=== PATIENT | male | born 1945 | race Caucasian/White ===

== ENCOUNTER 2016-11-03 05:21 | Inpatient (IN) | payer OTHER ==
[2016-10-01 13:58] VITALS: BMI 31.0
--- NOTE | 2016-10-01 14:38 | PAT Medication Instructions ---
Service Date Oct 01, 2016. Current Home Medication List Acetaminophen (Tylenol), 650 MG PO QID PRN for Pain Ascorbic Acid (Vitamin C), PO QAM Aspirin (Aspirin Ec), 81 MG PO HS Atorvastatin (Lipitor), 80 MG PO QAM B-Complex Vitamins (Vitamin B Complex), 1 TAB PO QAM Cinnamon (Cinnamon), 1 TAB PO QAM Fish Oil ([place]-3), 1 CAP PO QAM Flaxseed (Linseed) (Flaxseed Oil [place]-3), 2 CAP PO QAM Hydrochlorothiazide (Hctz), 12.5 MG PO QAM Losartan Potassium (Cozaar), 100 MG PO HS Metformin Hcl (Glucophage), 1,000 MG PO BID Metoprolol Succ (Toprol Xl) (Toprol-Xl), 50 MG PO QAM Multivitamin (Multivitamin), 1 TAB PO QAM Naproxen (Aleve), 220 MG PO BID PRN for Pain Nitroglycerin (Nitrostat), 0.4 MG UT PRN PRN for Chest Pain Omeprazole (Omeprazole), 1 TAB PO QAM Vardenafil (Levitra), 20 MG PO DIRECTED Medication Instructions For Your Scheduled Surgery Naproxen (Aleve), 220 MG PO BID PRN for Pain (per surgeon instructions) - Hold the following medications 2 weeks prior to surgery: Fish Oil ([place]-3), 1 CAP PO QAM Flaxseed (Linseed) (Flaxseed Oil [place]-3), 2 CAP PO QAM Cinnamon (Cinnamon), 1 TAB PO QAM - Hold the following medications 48 hours prior to surgery: Metformin Hcl (Glucophage), 1,000 MG PO BID - Hold the following medications the morning of surgery: Multivitamin (Multivitamin), 1 TAB PO QAM Hydrochlorothiazide (Hctz), 12.5 MG PO QAM B-Complex Vitamins (Vitamin B Complex), 1 TAB PO QAM Ascorbic Acid (Vitamin C), PO QAM Vardenafil (Levitra), 20 MG PO DIRECTED - Take the following medications the morning of surgery with a sip of water: Omeprazole (Omeprazole), 1 TAB PO QAM Metoprolol Succ (Toprol Xl) (Toprol-Xl), 50 MG PO QAM Atorvastatin (Lipitor), 80 MG PO QAM Acetaminophen (Tylenol), 650 MG PO QID PRN for Pain Nitroglycerin (Nitrostat), 0.4 MG UT PRN PRN for Chest Pain - Hold the following medications as scheduled the night before surgery: Losartan Potassium (Cozaar), 100 MG PO HS - Take the following medications as scheduled the night before surgery: Acetaminophen (Tylenol), 650 MG PO QID PRN for Pain Aspirin (Aspirin Ec), 81 MG PO HS (okay to continue per surgeon) Nitroglycerin (Nitrostat), 0.4 MG UT PRN PRN for Chest Pain Vardenafil (Levitra), 20 MG PO DIRECTED If you have any questions please call us at [phone] (Elizabeth Espino PA-C) or [phone] or [phone]
[2016-10-01 16:02] LABS: COMPLETE YES; HEMATOCRIT 43.2 % (42-52); IG% 0.3 %; LYMPH % 39.7 %; LYMPH ABS # 2.32 K/uL (1.2-3.4); MEAN CELL VOLUME 85.5 fL (80-100); MEAN CORPUSCULAR HEMOGLOBIN 30.3 pg (25-34); MEAN CORPUSCULAR HGB CONC 35.4 g/dl (32-36); MEAN PLATELET VOLUME 9.9 fL (7.4-10.4); MONO % 7.2 %; NEUT % 51.8 %; PLATELET COUNT 157 K/uL (130-400); RED BLOOD COUNT 5.05 M/uL (4.7-6.1); WHITE BLOOD COUNT 5.85 K/uL (4.8-10.8)
[2016-10-01 16:05] LABS: URINE APPEARANCE CLEAR (CLEAR); URINE BILIRUBIN NEG (NEG); URINE COLOR DK YELLOW; URINE NITRITE NEG (NEG); URINE SPECIFIC GRAVITY 1.022 (1.000-1.030); UROBILINOGEN NEG (NEG); ZZUR CULT IF INDIC CLEAN CATCH NO
[2016-10-01 16:06] LABS: MANUAL MICROSCOPIC REQUIRED? NO; REVIEW REQ? NO
[2016-10-01 16:14] LABS: PROTHROMBIN TIME (PATIENT) 10.6 SECONDS (9.0-12.0)
[2016-10-01 16:20] LABS: BUN/CREATININE RATIO 21.2 (10-20); CALCIUM 9.8 mg/dl (8.5-10.1); CREATININE 0.82 mg/dl (0.60-1.40); POTASSIUM 4.4 mmol/L (3.5-5.1)
--- NOTE | 2016-11-02 21:17 | HISTORY & PHYSICAL EXAMINATION ---
DATE OF ADMISSION: 11/03/2016 CHIEF COMPLAINT: Chronic left knee pain. HISTORY OF PRESENT ILLNESS: This is a 71-year-old male patient of Dr. Castillo'shalonda complaining of chronic left knee pain, longstanding, now progressively getting worse. The patient has failed conservative treatment including intraarticular injections, the use of narcotic medications, anti-inflammatories and the use of an Damian wrap. The patient has increased pain with weightbearing activities. His pain does interfere with his activities of daily living. The patient has been diagnosed with end-stage osteoarthritis in his left knee, per clinical and radiographic exams. PAST MEDICAL HISTORY: Hypertension, hypercholesterolemia, coronary artery disease status post triple bypass surgery in 2009, sleep apnea, diabetes mellitus, osteoarthritis, sciatica, acid reflux. SOCIAL HISTORY: Nonsmoker, occasional drinker. PAST SURGICAL HISTORY: 1. Coronary artery bypass surgery of the heart with 3 vessels. 2. Cholecystectomy. 3. Tonsils and adenoids. 4. Appendectomy. 5. Left knee arthroscopy x2. 6. Vasectomy. 7. Trigger finger releases. FAMILY HISTORY: Noncontributory. REVIEW OF SYSTEMS: The patient complains of chronic left knee pain, otherwise denies any shortness of breath, chest pain, nausea, vomiting or any other joint complaints. MEDICATIONS: 1. Nitroglycerin 0.4 mg as needed. 2. Losartan 100 mg daily. 3. Levitra 20 mg daily p.r.n. 4. Metformin 1000 mg b.i.d. 5. Metoprolol 50 mg daily. 6. Lipitor 80 mg daily. 7. Hydrochlorothiazide 25 mg 1/2 tablet by mouth daily. 8. Omeprazole 20 mg daily. 9. Tylenol as needed. 10. Naprosyn as needed. 11. Cinnamon daily. 12. Vitamin D daily. 13. Aspirin 81 mg daily. ALLERGIES: No known drug allergies. PHYSICAL EXAMINATION: GENERAL: Well-developed, well-nourished 71-year-old male patient in no acute distress. He is alert and oriented x3 and pleasant. HEENT: Normocephalic, atraumatic. Extraocular motions are intact. Pupils are equal and reactive to light. HEART: Regular rate and rhythm, no murmurs. LUNGS: Clear. ABDOMEN: Soft, nontender, bowel sounds present. EXTREMITIES: Left knee reveals range of motion negative 5-120 degrees. He has a varus deformity. He has crepitation with range of motion. He has 5/5 strength. Neurologically and neurovascularly he is intact in his left lower extremity with medial joint line tenderness. DIAGNOSES: Left knee end-stage osteoarthritis, hypertension, hypercholesterolemia, coronary artery disease status post triple bypass surgery in 2009, sleep apnea, diabetes mellitus, osteoarthritis, sciatica, acid reflux. PLAN: The patient was advised of his diagnosis. Indications, risks, benefits, and postop course have all been reviewed. The patient wishes to proceed with a left total knee arthroplasty. Necessary consent forms, preoperative testing and clearances will be obtained.
[~2016-11-03] VITALS: Ht 182.9 cm; Wt 103.0 kg
[2016-11-03] VITALS (8 sets, daily range): BP systolic 128–164; BP diastolic 72–96; PULSE 66–73; TEMP 36.5–36.9; O2SAT 95–99; Ht 182.9 cm; Wt 103.0 kg
[~2016-11-03 05:21] MED LIST: ACET-1311 PO; ASCO10003 PO; ASPI81TA28 PO; ATOR-26 PO; B-COTAB18 PO; CINN1CAP2 PO; FLAX10004 PO; HYDR25TA4 PO; LOSA1TAB38 PO; LVT/20 PO; METF-384 PO; METO50TA7 PO; MULT-506 PO; NAPR1TAB9 PO; NTRGSL/4 UT; OMEG10007 PO; OMEP20TA PO
[2016-11-03] MEDS ORDERED: CeleBREX 200 MG CAP PO SCH (06:00)
[2016-11-03] MEDS ORDERED: ROPIVACAINE 5MG/ML 30 ML 150 MG, BUPIVACAINE/EPINEPHR 0.5% MPF 30 ML, KETOROLAC TROMETH... INFIL SCH ×6 (06:00)
[2016-11-03] MEDS ORDERED: LACTATED RINGER'S 500 ML IV SCH (06:00)
[2016-11-03] MEDS ORDERED: FAMOTIDINE 20 MG TAB PO SCH (06:00)
[2016-11-03] MEDS ORDERED: CEFAZOLIN 2000 MG/60 ML D5W 60 ML IV SCH (06:00)
[2016-11-03] MEDS ORDERED: ACETAMINOPHEN 500 MG TAB PO SCH (06:00)
[2016-11-03] MEDS ORDERED: LACTATED RINGER'S 1000ML IV SCH (06:00)
[2016-11-03] MEDS ORDERED: LACTATED RINGER'S 1000ML 1,000 ML IV SCH (06:00)
[2016-11-03] MEDS ORDERED: METOCLOPRAMIDE HCL 10 MG TAB PO SCH (06:00)
[2016-11-03] MEDS ORDERED: GABAPENTIN 300 MG CAP PO SCH (06:00)
[2016-11-03] MEDS ORDERED: BUPIVACAINE 0.25% 30 ML VIAL ONE (06:35)
[2016-11-03] MEDS ORDERED: BUPIVACAINE 0.5 % 5 MG/1 ML PF 10ML VIAL ONE (06:35)
[2016-11-03] MEDS: TRANEXAMIC ACID INJ 1,000 MG in SODIUM CHLORIDE 0.9% 100ML 100 ML IV SCH ×2 (06:50→11:38)
[2016-11-03] MEDS ORDERED: POVIDONE-IODINE OP SOLN 30 ML BTL ONE (07:05)
[2016-11-03] MEDS ORDERED: BACITRACIN 50000 UNIT VIAL ONE (07:05)
[2016-11-03] MEDS ORDERED: ORTHO JOINT ANESTHETIC ONE (07:05)
[2016-11-03] MEDS ORDERED: MIDAZOLAM HCL 1 MG/ML 2ML VIAL ONE ×2 (07:09)
[2016-11-03] MEDS ORDERED: FENTANYL CITRATE INJ 50 MCG/1 ML 2 ML VIAL ONE (07:09)
[2016-11-03] MEDS ORDERED: PROPOFOL IV EMULSION 10 MG/ML 20 ML VIAL IV ONE (07:17)
--- NOTE | 2016-11-03 07:23 | History & Physical Bridge Note ---
H&P Re-Evaluation Bridge Note: I have examined the patient, reviewed the History & Physical and in the interval since the performance of the History & Physical I have noted the following changes of clinical significance: No changes noted
[2016-11-03] MEDS ORDERED: PHENYLEPHRINE 100MCG/ML 5ML SYR ONE (08:16)
[2016-11-03] MEDS ORDERED: ATROPINE SULFATE 0.1 MG/ML 5ML SYR IV PRN (09:00)
[2016-11-03] MEDS ORDERED: LABETALOL HCL IV 5 MG/ML 20ML IV PRN (09:00)
[2016-11-03] MEDS ORDERED: EpHEDrine SULFATE INJ 50 MG/ML AMP IV PRN (09:00)
[2016-11-03] MEDS ORDERED: MEPERIDINE HCL 25 MG/ML CARP IV PRN (09:00)
[2016-11-03] MEDS ORDERED: ONDANSETRON INJ 2 MG/ML 2 ML VIAL IV PRN ×2 (09:00→10:00)
[2016-11-03] MEDS ORDERED: FENTANYL CITRATE INJ 50 MCG/1 ML 2 ML VIAL IV PRN (09:00)
[2016-11-03] MEDS ORDERED: HYDROmorphone INJ 1 MG/ML SYR IV PRN (09:00)
[2016-11-03] MEDS ORDERED: ZOLPIDEM TARTRATE 5 MG TAB PO PRN (10:00)
[2016-11-03] MEDS ORDERED: BISACODYL 10 MG SUPP PR PRN (10:00)
[2016-11-03] MEDS ORDERED: MoRPHine SULFATE 2 MG/ML CARP IV PRN (10:00)
[2016-11-03] MEDS ORDERED: SOD PHOSPHATE/SOD BIPHOSPHATE ENEMA 132 ML BTL PR PRN (10:00)
[2016-11-03] MEDS ORDERED: MAGNESIUM HYDROXIDE SUSP 30 ML UDC PO PRN (10:00)
[2016-11-03] MEDS ORDERED: NITROGLYCERIN 0.4 MG SL PER TAB CHARGE UT PRN (10:00)
--- NOTE | 2016-11-03 10:01 | [facility] Operative Report ---
Operative Report Operative Date Nov 03, 2016. Pre-Operative Diagnosis Left knee end-stage osteoarthritis Post-Operative Diagnosis same Procedure(s) Performed left total knee replacement Surgeon Dr. Kentrell Castillo Surgical Pathologist Surgeon(s) Chandler Sykes PA-C Estimated Blood Loss 10 mL Findings chronic scar tissue ,flexion contracture ,tricompartmental djd grade 4 medial , varus. Specimens Permanent specimens A: Left knee bone and tissue Drains 2 hemovac Anesthesia spinal sedation and orthomix and regional block Complication(s) None Disposition Recovery Room / PACU Indications end stage djd oa I attest to the content of the Intraoperative Record and any orders documented therein. Any exceptions are noted below.
--- NOTE | 2016-11-03 10:34 | DIAGNOSTIC IMAGING REPORT ---
LEFT KNEE 1 OR 2 VIEWS ROUTINE CLINICAL HISTORY: Postop examination COMPARISON: None. DISCUSSION: There are postsurgical changes of a total left knee arthroplasty and patellar resurfacing. The femoral and tibial components appear well seated. Overlying skin catina and surgical drains are evident. There is air within soft tissues consistent with recent surgery. IMPRESSION: Postsurgical changes of a total left knee arthroplasty. Electronically signed by: Jean Claude Bloom M.D. 11/03/2016 10:32 AM Dictated Date/Time: 11/03/2016 10:31 AM
--- NOTE | 2016-11-03 11:29 | Anesthesiology Progress Note ---
Anesthesia Post Op Note Date & Time Nov 03, 2016 at 11:28 Vital Signs Pain Intensity: 0 Vital Signs Past 12 Hours Date Time Temp Pulse Resp B/P Pulse Ox O2 Delivery O2 Flow Rate FiO2 11/03/16 11:16 120/74 11/03/16 11:14 65 16 96 11/03/16 11:14 67 16 11/03/16 11:11 128/74 11/03/16 11:09 78 20 96 11/03/16 11:09 79 20 11/03/16 11:06 135/80 11/03/16 11:04 71 12 11/03/16 11:04 71 12 96 11/03/16 11:01 137/71 11/03/16 10:59 75 18 11/03/16 10:59 76 18 97 11/03/16 10:58 71 25 11/03/16 10:58 72 25 96 11/03/16 10:56 134/76 11/03/16 10:53 37.7 11/03/16 10:53 72 14 97 11/03/16 10:53 72 14 11/03/16 10:51 123/74 11/03/16 10:48 71 11 96 11/03/16 10:48 71 11 11/03/16 10:47 72 18 11/03/16 10:47 72 18 96 11/03/16 10:46 131/82 11/03/16 10:42 70 18 11/03/16 10:42 70 18 98 11/03/16 10:41 131/80 11/03/16 10:37 68 15 11/03/16 10:37 69 15 97 11/03/16 10:36 131/77 11/03/16 10:35 70 18 11/03/16 10:35 70 18 97 11/03/16 10:31 120/80 11/03/16 10:30 65 14 11/03/16 10:30 67 14 95 11/03/16 10:26 128/72 11/03/16 10:25 74 13 95 11/03/16 10:25 71 13 11/03/16 10:21 152/78 11/03/16 10:20 70 17 11/03/16 10:20 71 17 97 11/03/16 10:16 129/81 11/03/16 10:15 64 14 97 11/03/16 10:15 65 14 11/03/16 10:11 126/84 11/03/16 10:10 79 12 11/03/16 10:10 80 12 93 11/03/16 10:06 134/77 11/03/16 10:05 68 12 95 11/03/16 10:05 67 12 11/03/16 10:00 72 14 11/03/16 10:00 72 14 131/81 97 11/03/16 10:00 37.6 76 14 131/81 97 Nasal Cannula 2 11/03/16 06:04 36.8 66 18 164/96 99 Room Air Notes Mental Status: alert / awake / arousable, participated in evaluation Pt Amnestic to Procedure: Yes Nausea / Vomiting: adequately controlled Pain: adequately controlled Airway Patency, RR, SpO2: stable & adequate BP & HR: stable & adequate Hydration State: stable & adequate Neuraxial Anesthesia: was administered, sensory block is resolving Anesthetic Complications: no major complications apparent
--- NOTE | 2016-11-03 11:45 | OPERATIVE REPORT ---
DATE OF OPERATION: 11/03/2016 INDICATION FOR PROCEDURE: The patient is a 71-year-old male with chronic progressive pain and disability with regard to his left knee. He has known osteoarthritis. He had for years. He has multiple injections. He has had extensive conservative management. He has failed all conservative management. His left knee exam demonstrates he had about a 20 degree flexion contracture of flexion of his knee about 125 degrees. No instability with a very stiff knee. Radiographs demonstrated a varus knee. On flexion views it appears to be close to being bone on bone on standing weightbearing films. He has tricompartmental osteophytes. PREOPERATIVE DIAGNOSIS: End-stage osteoarthritis, left knee with flexion contracture. POSTOPERATIVE DIAGNOSIS: Same. PROCEDURE: Left total knee arthroplasty. SURGEON: Dr. Castillo. ELDER COUNSELOR: Chandler Sykes PA-C. ANESTHESIA: Spinal IV sedation, regional block Orthomix. OPERATIVE PROCEDURE: The patient taken to the operating room, anesthetized under regional block spinal anesthetic and sedation. She was placed supine on the operating room table. Pneumatic tourniquet was placed about his left upper thigh. His left lower extremity was prepped and draped in usual sterile fashion. I used the Contreras \T\ Nephew Journey 2.0, total knee arthroplasty system using [employer] MRI templating with femur sized for 8 and the tibia for 8. The knee exam demonstrated a 20 degree flexion contracture and range of motion to 125 degrees of flexion with no instability. After the leg was sterilely prepped and draped with ChloraPrep, it was elevated, exsanguinated with Esmarch bandage. Pneumatic tourniquet was raised to 325 mmHg. Anterior incision was made across the left knee. Skin was incised sharply in a longitudinal fashion. The subcutaneous flaps were elevated. An incision was made through the medial retinaculum extended up into the mid third of the quadriceps tendon and extended down to the medial tibial tubercle. Intraarticular findings demonstrated significant scarred synovial tissue throughout the knee, very stiff knee, medial meniscus tear or prior partial meniscectomy on the medial side. His cruciate ligaments were still intact. He had tricompartmental osteophytes and grade 4 DJD medial femoral condyle and posteromedial tibial plateau. To expose the knee, I had to release around the proximal medial tibial plateau, resect the meniscal remnants, excise some of the scarred synovial tissue, excised the scarred infrapatellar fat pad, resect the lateral meniscus and cruciate ligaments and resect a portion of the fat pad over the anterior femur for placement of the component in that area. The femur was still unable to be exposed because of a very tight knee so I had to go ahead and first address the patella. We did rey the patella so we could do a subperiosteal peel lateral release and fully rey the patella at that point and then measured the patella width and the width was reproduced using a freehand cut technique and a 38 mm patellar component. Drill holes were made for that component and the excess lateral facet of the patella was bevelled off to prevent any impingement. At this point, we were able to get the retractors so we could expose the large femur. The custom cutting block was positioned and pinned in position, and I felt because of the significant flexion contracture, we may have to remove more than the amount of bone that was anticipated with the custom cutting block, so we moved the custom cutting block and placed on a +2 cutting block to resect 2 mm more distal femur. This was made with the oscillating saw and then the 5-1 cutting block for the size 8 femur was used. He had some AP ,ML mismatch because his femur was quite wider than 8 medial to lateral, so was a very large individual. The anterior, posterior and chamfer cuts were then made and then the tibia was subluxed and retractors were placed and then the custom tibial cutting block was placed and the proximal tibial cut was made with the oscillating saw. Then we used the lamina hot stone setter to balance the ligaments in extension and flexion, appeared to have reasonably good extension and flexion gaps with some tightness in the posterior medial compartment, so I went ahead and did some posteromedial release to balance that gap better. At this point, the tibia was re-exposed and the size 8 tibial baseplate was externally rotated in line with the tibial tubercle, pinned in position. The punch for the stem was used and the 8 femoral trial was inserted, centered and a 10 trial gave best balance of ligaments through full range of motion. His flexion contracture was improved to just under 5 degrees and we accepted that for ligamentous balance in extension and flexion. The patella tracked centrally and the patient had flexion passively to 140 degrees. The trials were then removed. We had previously used the notch cutting devices prior to placing the collet and prior to trial reduction. We injected the Orthomix cocktail per protocol and then copiously irrigated the knee with pulsatile lavage antibiotic solution with bacitracin and then cemented the components with Simplex G cement. The final components were the Contreras \T\ Nephew Journey 2.0 8 sized posterior femoral component with a size 8 tibial baseplate and a 10 mm posterior stabilized poly insert and a 38 mm patella. Simplex G cement was used. All excess cement was cleared, knee was kept in extension until the cement cured and the knee was irrigated with Betadine soak per protocol while allowing the cement to harden. The knee was again copiously irrigated with antibiotic solution and bacitracin. Two drains were brought out laterally. The quadriceps tendon and medial retinaculum were closed with interrupted [id number] #1 Vicryl sutures. The knee was taken through full range of motion and repair was secured through full extension through 140 degrees of flexion and then the subcutaneous tissues closed with interrupted 2-0 Vicryl, skin was closed with catina. Sterile dressings were applied and a Silverlon dressing was placed. The patient had tourniquet let down and good capillary refill to the extremity and the patient tolerated the procedure well. ROEL Altman was my medical office assistant. He functioned as medical office assistant for the entire procedure. He assisted in patient positioning, prepping, draping, assisted in soft tissue retraction, instrument management during the procedure, assisted in subcutaneous and skin closure and will participate in postoperative care of the patient. I attest to the content of the Intraoperative Record and any orders documented therein. Any exceptions are noted below. JAIMIE
[2016-11-03] MEDS: INSULIN ASPART 100 UNITS/ML 3 ML PEN SC SCH ×3 (12:00→21:00)
[2016-11-03] MEDS: ACETAMINOPHEN 500 MG TAB PO SCH ×2 (13:59→21:22)
[2016-11-03] MEDS ORDERED: MoRPHine SULFATE 4 MG/ML 1 ML CARP\\VIAL IV PRN (14:00)
[2016-11-03] MEDS: SODIUM CHLORIDE 0.9% 1000ML 1,000 ML IV SCH (14:00)
--- NOTE | 2016-11-03 14:24 | Medical Consult ---
Consultation Date of Consultation: Nov 03, 2016. Attending Physician: Kentrell Castillo M.D. Reason for Consultation: postop medical management History of Present Illness Patient seen and examined after undergoing L TKA today by Dr. Castillo. Patient had a history of ongoing L knee pain which failed conservative treatment including PT. He states he is feeling well and denies any pain at present. He tolerated lunch without issues. He denies fever, chills, dizziness, chest pain, URI symptoms, cough, SOB, abdominal pain, N/V/, change in bowel or bladder movements, calf pain, edema. Pt declines insulin- states he had a prior flushing reaction to insulin after receiving it once during prior hospitalization. He usually takes metformin 1000 mg BID. Blood sugars were running 140ss-170s at home and running 140-150s here today. No hx of VTE. Past Medical/Surgical History Medical Problems: (1) CAD (coronary artery disease) Status: Chronic (2) DM type 2 (diabetes mellitus, type 2) Status: Chronic (3) Dyslipidemia Status: Chronic (4) GERD (gastroesophageal reflux disease) Status: Chronic (5) HTN (hypertension) Status: Chronic (6) Sleep apnea Permanent Comment: not on CPAP Status: Chronic Surgical Problems: (1) H/O arthroscopic knee surgery Status: Chronic (2) History of carpal tunnel surgery Status: Chronic (3) S/P appendectomy Status: Chronic (4) S/P CABG (coronary artery bypass graft) Status: Chronic (5) S/P tonsillectomy and adenoidectomy Status: Chronic (6) S/p trigger finger surgery Status: Chronic (7) S/P vasectomy Status: Chronic Family History Cardiac disorder FATHER MOTHER Stroke MOTHER Social History Smoking Status: Never Smoker Alcohol Use: occasionally Drug Use: none Marital Status: Housing Status: lives with significant other Allergies Coded Allergies: Lisinopril (Verified Adverse Reaction, Unknown, COUGH, 11/03/16) Home Medications Reported Home Medications Medications Dose Route/Sig Max Daily Dose Days Date Category Dose Instructions [place]-3 (Fish Oil) 1 Ea Cap 1 Cap PO QAM 10/01/16 Reported Multivitamin (Multivitamins) Tab 1 Tab PO QAM 10/01/16 Reported Cinnamon 500 Mg Cap 1 Tab PO QAM 10/01/16 Reported Aleve (Naproxen) 220 Mg Tab 220 Mg PO BID PRN 10/01/16 Reported HOLD ONE MONTH Tylenol (Acetaminophen) 325 Mg Tab 650 Mg PO QID PRN 10/01/16 Reported Levitra (Vardenafil HCl) 20 Mg Tab 20 Mg PO DIRECTED 10/01/16 Reported Cozaar (Losartan Potassium) 100 Mg Tab 100 Mg PO DAILY 10/01/16 Reported Hctz (Hydrochlorothiazide) 25 Mg Tab 25 Mg PO QAM 10/01/16 Reported Nitrostat (Nitroglycerin) 0.4 Mg Tab 0.4 Mg UT PRN PRN 12/27/14 Reported Vitamin B Complex (B-Complex Vitamins) 1 Tab Tab 1 Tab PO QAM 12/27/14 Reported Flaxseed Oil [place]-3 (Flaxseed (Linseed)) 1,000 Mg Cap 2 Cap PO QAM 12/27/14 Reported Omeprazole 20 Mg Tab 1 Tab PO QAM 12/27/14 Reported Toprol-Xl (Metoprolol Succinate) 50 Mg Tabcr 50 Mg PO QAM 12/27/14 Reported Vitamin C (Ascorbic Acid) 1,000 Mg Tab PO QAM 12/27/14 Reported Aspirin Ec (Aspirin) 81 Mg Tab 81 Mg PO HS 12/27/14 Reported Glucophage (Metformin Hcl) 1,000 Mg Tab 1,000 Mg PO BID 12/27/14 Reported Lipitor (Atorvastatin Calcium) 80 Mg Tab 80 Mg PO HS 12/27/14 Reported Current Inpatient Medications Current Inpatient Medications Medications (Trade) Dose Ordered Sig/Елена Route Start Time Stop Time Status Last Admin Dose Admin Lactated Ringer's 1,000 ml @ 60 mls/hr [id number] IV 11/03/16 06:00 11/03/16 22:39 Cefazolin Sodium (Ancef 2000mg/60 ml D5W) 60 ml @ 100 mls/hr PREOP IV 11/03/16 06:00 11/03/16 18:00 11/03/16 07:30 100 MLS/HR Acetaminophen (Tylenol Tab) 1,000 mg PREOP PO 11/03/16 06:00 11/03/16 18:00 11/03/16 06:33 1,000 MG Celecoxib (CeleBREX CAP) 200 mg PREOP PO 11/03/16 06:00 11/03/16 18:00 11/03/16 06:32 200 MG Famotidine (Pepcid Tab) 20 mg PREOP PO 11/03/16 06:00 11/03/16 18:00 11/03/16 06:32 20 MG Gabapentin (Neurontin Cap) 300 mg PREOP PO 11/03/16 06:00 11/03/16 18:00 11/03/16 06:31 300 MG Metoclopramide HCl 10 mg 10 mg PREOP PO 11/03/16 06:00 11/03/16 18:00 11/03/16 06:32 10 MG Tranexamic Acid 1000 mg/Sodium Chloride 110 ml @ 660 mls/hr TODAY@06,0630 IV 11/03/16 06:00 11/03/16 18:00 11/03/16 06:50 660 MLS/HR Lactated Ringer's (Lr 1000ml) 1,000 ml @ 15 mls/hr Q24H IV 11/03/16 06:00 11/04/16 05:59 Fentanyl Citrate (Fentanyl Inj) 50 mcg Q5M PRN IV 11/03/16 09:00 11/03/16 14:00 Hydromorphone HCl (Dilaudid Inj) 0.5 mg Q5M PRN IV 11/03/16 09:00 11/03/16 14:00 Meperidine HCl (Demerol Inj) 25 mg Q5M PRN IV 11/03/16 09:00 11/03/16 14:00 Ondansetron HCl (Zofran Inj) 4 mg ONE PRN IV 11/03/16 09:00 11/03/16 14:00 Labetalol HCl (Normodyne IV) 5 mg Q5M PRN IV 11/03/16 09:00 11/03/16 14:00 Ephedrine Sulfate (EpHEDrine SULFATE INJ) 5 mg Q5M PRN IV 11/03/16 09:00 11/03/16 14:00 Atropine Sulfate (Atropine Sulfate 0.1MG/Ml Inj) 0.5 mg Q1M PRN IV 11/03/16 09:00 11/03/16 14:00 Atorvastatin Calcium (Lipitor Tab) 80 mg QAM PO 11/04/16 09:00 12/04/16 08:59 Hydrochlorothiazide (Hydrochlorothiazide Tab) 25 mg QAM PO 11/04/16 09:00 12/04/16 08:59 Losartan Potassium (coZAAR TAB) 100 mg HS PO 11/03/16 21:00 12/03/16 20:59 Metoprolol Succinate (Toprol Xl Tab) 50 mg QAM PO 11/04/16 09:00 12/04/16 08:59 Nitroglycerin (Nitrostat Tab) 0.4 mg PRN PRN UT 11/03/16 10:00 12/03/16 09:59 Vitamin B Complex 1 tab 1 tab QAM PO 11/04/16 09:00 12/04/16 08:59 Sodium Chloride 1,000 ml @ 100 mls/hr Q10H IV 11/03/16 13:40 11/04/16 13:39 Cefazolin Sodium/ Dextrose (Ancef Iv/D5 50ml) 60 ml @ 100 mls/hr Q8@0000,0800,1600 IV 11/03/16 16:00 11/04/16 00:35 Celecoxib (CeleBREX CAP) 200 mg BID PO 11/03/16 21:00 12/03/16 20:59 Oxycodone HCl (Roxicodone Immediate Rel Tab) 1 TABLET FOR PAIN RATING... Q4H PRN PO 11/03/16 10:00 11/17/16 09:59 Oxycodone HCl (Oxycontin Tab) 10 mg Q12 PO 11/03/16 21:00 11/17/16 20:59 Morphine Sulfate (MoRPHine SULFATE INJ) 2 mg Q2H PRN IV 11/03/16 10:00 11/17/16 09:59 Acetaminophen (Tylenol Tab) 1,000 mg Q8 PO 11/03/16 14:00 12/03/16 13:59 Magnesium Hydroxide (Milk Of Magnesia Susp) 30 ml Q6H PRN PO 11/03/16 10:00 12/03/16 09:59 Bisacodyl (Dulcolax Supp) 10 mg DAILY PRN ME 11/03/16 10:00 12/03/16 09:59 Sodium Biphosphate/ Sodium Phosphate (Fleet Enema) 132 ml DAILY PRN ME 11/03/16 10:00 12/03/16 09:59 Docusate Sodium (coLACE CAP) 100 mg BID PO 11/03/16 21:00 12/03/16 20:59 Diphenhydramine HCl (Benadryl Cap) 25 mg Q8H PRN PO 11/03/16 10:00 12/03/16 09:59 Zolpidem Tartrate (Ambien Tab) 5 mg HSZ PRN PO 11/03/16 10:00 12/03/16 09:59 Multivitamins (Multivitamin Tab) 1 tab QAM PO 11/04/16 09:00 12/04/16 08:59 Ondansetron HCl (Zofran Inj) 4 mg Q6H PRN IV 11/03/16 10:00 12/03/16 09:59 Pantoprazole Sodium (Protonix Tab) 40 mg QAM PO 11/04/16 09:00 12/04/16 08:59 Tramadol HCl (Ultram Tab) 1 tablet for pain rating... Q4H PRN PO 11/03/16 10:00 12/03/16 09:59 Aspirin (Ecotrin Tab) 81 mg BID PO 11/03/16 21:00 12/03/16 20:59 Insulin Aspart (novoLOG ASPART) SLIDING SCALE G... ACHS SC 11/03/16 12:00 12/03/16 11:59 Morphine Sulfate (MoRPHine SULFATE INJ) 4 mg Q2H PRN IV 11/03/16 14:00 11/17/16 13:59 Review of Systems Ten point ROS performed with pertinent positives and negatives noted in HPI. Physical Exam Date Time Temp Pulse Resp B/P Pulse Ox O2 Delivery O2 Flow Rate FiO2 11/03/16 12:30 68 18 137/73 98 Nasal Cannula 2.0 11/03/16 12:05 36.5 67 19 131/72 97 Nasal Cannula 11/03/16 11:30 Nasal Cannula 2.0 11/03/16 11:30 36.9 71 20 132/77 97 Nasal Cannula 2.0 11/03/16 11:30 Nasal Cannula 2.0 11/03/16 11:16 120/74 11/03/16 11:14 65 16 96 11/03/16 11:14 67 16 11/03/16 11:11 128/74 11/03/16 11:09 78 20 96 11/03/16 11:09 79 20 11/03/16 11:06 135/80 4/19/17 11:04 71 12 17 11:04 71 12 96 11/03/16 11:01 137/71 17 10:59 75 18 17 10:59 76 18 97 17 10:58 71 25 17 10:58 72 25 96 17 10:56 134/76 11/03/16 10:53 37.7 11/03/16 10:53 72 14 97 11/03/16 10:53 72 14 11/03/16 10:51 123/74 17 10:48 71 11 96 11/03/16 10:48 71 11 11/03/16 10:47 72 18 11/03/16 10:47 72 18 96 11/03/16 10:46 131/82 11/03/16 10:42 70 18 11/03/16 10:42 70 18 98 11/03/16 10:41 131/80 11/03/16 10:37 68 15 11/03/16 10:37 69 15 97 11/03/16 10:36 131/77 11/03/16 10:35 70 18 11/03/16 10:35 70 18 97 11/03/16 10:31 120/80 17 10:30 65 14 11/03/16 10:30 67 14 95 11/03/16 10:26 128/72 17 10:25 74 13 95 17 10:25 71 13 11/03/16 10:21 152/78 11/03/16 10:20 70 17 11/03/16 10:20 71 17 97 11/03/16 10:16 129/81 11/03/16 10:15 64 14 97 11/03/16 10:15 65 14 17 10:11 126/84 17 10:10 79 12 11/03/16 10:10 80 12 93 11/03/16 10:06 134/77 11/03/16 10:05 68 12 95 11/03/16 10:05 67 12 11/03/16 10:00 72 14 11/03/16 10:00 72 14 131/81 97 11/03/16 10:00 37.6 76 14 131/81 97 Nasal Cannula 2 11/03/16 06:04 36.8 66 18 164/96 99 Room Air General Appearance: WD/WN, no apparent distress, + pertinent finding (pleasant alert 71 year old male, lying in bed with HOB elevated, appears comfortable, at bedside) Head: normocephalic, atraumatic Eyes: normal inspection, PERRL ENT: hearing grossly normal, pharynx normal Neck: supple, trachea midline Respiratory/Chest: lungs clear, normal breath sounds, no respiratory distress, no accessory muscle use Cardiovascular: regular rate, rhythm, no murmur Abdomen/GI: normal bowel sounds, non tender, soft Extremities/Musculoskelatal: no calf tenderness, no pedal edema, + pertinent finding (left knee with dressing and ice pack in place. left knee drain with sanguinous drainage. SCD's in place bilaterally) Neurologic/Psych: alert, normal mood/affect, oriented x 3, + pertinent finding (sensation to light touch grossly intact bilateral feet. able to flex/ extend ankles bilaterally. ) Skin: normal color, warm/dry Laboratory Results Last 24 Hours Test 11/03/16 05:46 11/03/16 06:05 11/03/16 10:29 11/03/16 12:21 Bedside Glucose 146 mg/dl 151 mg/dl 149 mg/dl Assessment & Plan S/P LEFT TKA POD #[address] Castillo Pain control and activity per ortho Monitor daily H/H for sign of acute blood loss anemia Continue incentive spirometry PT/ OT DM TYPE 2 Recent A1c 6.9 on 08/18/16 On metformin 1000 mg BID at home Refusing insulin; reports prior reaction of flushing BSG's running 140-150; not on steroids Spoke to glycemic control pharmacist Qian, appreciate input, safe to resume metformin tomorrow am if renal function stable and tolerating PO Monitor BSG AC HS In the evening blood sugar elevated to 244- stat PRP showed normal renal function- will resume metformin tonight instead HYPERTENSION BP is stable Hold HCTZ for now to avoid dehydration; receiving IVF's Continue losartan and metoprolol succinate CAD S/P CABG Stable, no chest pain Continue beta marcelino, statin, ARB Aspirin resumed by ortho GERD Continue PPI GERMAN Not on CPAP at home; states uses Zzoma vest to prevent him from lying supine Declines to use ZZoma vest or CPAP in the hospital DVT PROPHYLAXIS Per ortho Patient seen in collaboration with Dr. Yeung. Please see her addendum. I have seen and examined the patient and discussed the case with the provider above. I agree with the plan, however, the patient is currently declining insulin. He takes metformin at home, so will resume that now. Ca also a little low--replacement ordered and will repeat PRP in am with albumin and iCa. Exam is unremarkable--drain is in place and draining bloody drainage, LOKESH wrap around lower L leg which is NVI. Cont pain meds PRN per Ortho. DO Gamal
[2016-11-03] MEDS: CEFAZOLIN IV 2,000 MG in DEXTROSE 5% 50ML 50 ML IV SCH (16:52)
[2016-11-03] MEDS: TRAMADOL HCL 50 MG TAB PO PRN (20:16)
[2016-11-03 20:45] LABS: BUN/CREATININE RATIO 13.7 (10-20); CREATININE 1.2 mg/dl (0.60-1.40); POTASSIUM 3.7 mmol/L (3.5-5.1)
[2016-11-03] MEDS ORDERED: LOSARTAN POTASSIUM 50 MG TAB PO SCH (21:00)
[2016-11-03] MEDS ORDERED: METFORMIN HCL 500 MG TAB PO STA (21:11)
[2016-11-03] MEDS: CeleBREX 200 MG CAP PO SCH (21:18)
[2016-11-03] MEDS: ASPIRIN 81 MG ECTAB PO SCH (21:18)
[2016-11-03] MEDS: DOCUSATE SODIUM 100 MG CAP PO SCH (21:18)
[2016-11-03] MEDS: OXYCODONE HCL 10 MG TABCR (OXYCONTIN) PO SCH (21:21)
[2016-11-03] MEDS: ATORVASTATIN 40 MG TAB PO SCH (21:21)
[2016-11-03] MEDS ORDERED: CALCIUM GLUCONATE 10% 1,000 MG in SODIUM CHLORIDE 0.9% 50ML 50 ML IV ONE (22:00)
[2016-11-04 00:14] VITALS: BP 145/81; PULSE 76; TEMP 36.7; O2SAT 95
[2016-11-04] MEDS: CEFAZOLIN IV 2,000 MG in DEXTROSE 5% 50ML 50 ML IV SCH (00:33)
[2016-11-04] MEDS: SODIUM CHLORIDE 0.9% 1000ML 1,000 ML IV SCH ×2 (00:33→09:35)
[2016-11-04] MEDS: TRAMADOL HCL 50 MG TAB PO PRN ×3 (01:33→17:39)
[2016-11-04 04:03] VITALS: BP 124/75; PULSE 73; TEMP 37; O2SAT 95
[2016-11-04] MEDS: ACETAMINOPHEN 500 MG TAB PO SCH ×3 (05:46→21:16)
[2016-11-04 06:06] LABS: HEMATOCRIT 34.8 % (42-52); MEAN CELL VOLUME 85.3 fL (80-100); MEAN CORPUSCULAR HEMOGLOBIN 29.2 pg (25-34); MEAN CORPUSCULAR HGB CONC 34.2 g/dl (32-36); MEAN PLATELET VOLUME 8.9 fL (7.4-10.4); PLATELET COUNT 123 K/uL (130-400); RED BLOOD COUNT 4.08 M/uL (4.7-6.1); WHITE BLOOD COUNT 7.38 K/uL (4.8-10.8)
[2016-11-04 06:37] LABS: BUN/CREATININE RATIO 16.3 (10-20); CALCIUM 7.9 mg/dl (8.5-10.1); CREATININE 0.99 mg/dl (0.60-1.40); POTASSIUM 4.1 mmol/L (3.5-5.1)
[2016-11-04 07:19] VITALS: BP 136/80; PULSE 73; TEMP 36.8; O2SAT 94
--- NOTE | 2016-11-04 08:11 | Anesthesiology Progress Note ---
Anesthesia Post Op Note Date & Time Nov 04, 2016 at 08:09 Vital Signs Pain Intensity: 4.0 Vital Signs Past 12 Hours Date Time Temp Pulse Resp B/P Pulse Ox O2 Delivery O2 Flow Rate FiO2 11/04/16 08:00 Room Air 11/04/16 07:19 36.8 73 16 136/80 94 Room Air 11/04/16 04:03 37.0 73 18 124/75 95 Room Air 11/04/16 00:14 36.7 76 18 145/81 95 11/03/16 20:56 36.9 72 16 139/75 95 Room Air Notes Mental Status: alert / awake / arousable, participated in evaluation Pt Amnestic to Procedure: Yes Nausea / Vomiting: adequately controlled Pain: adequately controlled Airway Patency, RR, SpO2: stable & adequate BP & HR: stable & adequate Hydration State: stable & adequate Neuraxial Anesthesia: sensory block resolved Anesthetic Complications: no major complications apparent
[2016-11-04] MEDS: OXYCODONE HCL 10 MG TABCR (OXYCONTIN) PO SCH ×2 (08:36→21:12)
[2016-11-04] MEDS: METFORMIN HCL 500 MG TAB PO SCH ×2 (08:37→17:29)
[2016-11-04] MEDS: LOSARTAN POTASSIUM 50 MG TAB PO SCH (08:37)
[2016-11-04] MEDS: MULTIVITAMIN TAB PO SCH (08:38)
[2016-11-04] MEDS: VITAMIN B COMPLEX TAB PO SCH (08:38)
[2016-11-04] MEDS: PANTOprazole SOD 40 MG TAB PO SCH (08:38)
--- NOTE | 2016-11-04 08:38 | Orthopedic Progress Note ---
Orthopedic Progress Note Date of Service Nov 04, 2016. Subjective Post OP Day: 1 Reports: feeling well, pain controlled w PO medications, Denies: SOB, calf pain , chest pain, complaints, light headedness, nausea / vomiting Objective calves soft nontender, N/V intact, capillary refill less than 2 sec., dressing C /D/I, A&O x3, toes mobile Date Time Temp Pulse Resp B/P Pulse Ox O2 Delivery O2 Flow Rate FiO2 11/04/16 08:00 Room Air 11/04/16 07:19 36.8 73 16 136/80 94 Room Air 11/04/16 04:03 37.0 73 18 124/75 95 Room Air 11/04/16 00:14 36.7 76 18 145/81 95 11/03/16 20:56 36.9 72 16 139/75 95 Room Air 11/03/16 16:15 Nasal Cannula 3.0 11/03/16 15:40 36.8 73 16 128/78 97 Nasal Cannula 3.0 11/03/16 14:28 71 16 153/90 98 Nasal Cannula 2.0 11/03/16 13:30 71 16 145/82 98 Nasal Cannula 2.0 11/03/16 12:30 68 18 137/73 98 Nasal Cannula 2.0 11/03/16 12:05 36.5 67 19 131/72 97 Nasal Cannula 11/03/16 11:30 Nasal Cannula 2.0 11/03/16 11:30 36.9 71 20 132/77 97 Nasal Cannula 2.0 11/03/16 11:30 Nasal Cannula 2.0 11/03/16 11:16 120/74 11/03/16 11:14 65 16 96 11/03/16 11:14 67 16 11/03/16 11:11 128/74 11/03/16 11:09 78 20 96 11/03/16 11:09 79 20 11/03/16 11:06 135/80 11/03/16 11:04 71 12 11/03/16 11:04 71 12 96 11/03/16 11:01 137/71 11/03/16 10:59 75 18 11/03/16 10:59 76 18 97 11/03/16 10:58 71 25 11/03/16 10:58 72 25 96 11/03/16 10:56 134/76 11/03/16 10:53 37.7 11/03/16 10:53 72 14 97 11/03/16 10:53 72 14 11/03/16 10:51 123/74 11/03/16 10:48 71 11 96 11/03/16 10:48 71 11 11/03/16 10:47 72 18 11/03/16 10:47 72 18 96 11/03/16 10:46 131/82 11/03/16 10:42 70 18 11/03/16 10:42 70 18 98 11/03/16 10:41 131/80 11/03/16 10:37 68 15 11/03/16 10:37 69 15 97 11/03/16 10:36 131/77 11/03/16 10:35 70 18 11/03/16 10:35 70 18 97 11/03/16 10:31 120/80 11/03/16 10:30 65 14 11/03/16 10:30 67 14 95 11/03/16 10:26 128/72 11/03/16 10:25 74 13 95 11/03/16 10:25 71 13 11/03/16 10:21 152/78 11/03/16 10:20 70 17 11/03/16 10:20 71 17 97 11/03/16 10:16 129/81 11/03/16 10:15 64 14 97 11/03/16 10:15 65 14 11/03/16 10:11 126/84 11/03/16 10:10 79 12 11/03/16 10:10 80 12 93 11/03/16 10:06 134/77 11/03/16 10:05 68 12 95 11/03/16 10:05 67 12 11/03/16 10:00 72 14 11/03/16 10:00 72 14 131/81 97 11/03/16 10:00 37.6 76 14 131/81 97 Nasal Cannula 2 Laboratory Results 24 Hours: Test 11/04/16 05:40 Hematocrit 34.8 % Hemoglobin 11.9 g/dL Assessment & Plan Assessment: POD #1, Left TKA Plan: PT/ OT DVT proph- ASA D/C planning- Home w OPPT Appreciate medicine input. Inhouse Planning Pain Management: Celebrex, Oxycontin, Morphine, PO Tylenol, Oxy IR DVT Prophylaxis: TEDs, SCDs, ASA Discharge Planning Discharge Planning: home with oppt Pain Management: Celebrex, Oxycontin, PO Tylenol, Oxy IR DVT Prophylaxis: TEDs, ASA Therapy: Physical Therapy, Occupational Therapy
[2016-11-04] MEDS: CeleBREX 200 MG CAP PO SCH ×2 (08:39→21:13)
[2016-11-04] MEDS: METOPROLOL SUCC 50MG EXT REL TAB PO SCH (08:39)
[2016-11-04] MEDS: ASPIRIN 81 MG ECTAB PO SCH ×2 (08:39→21:12)
[2016-11-04] MEDS: DOCUSATE SODIUM 100 MG CAP PO SCH ×2 (08:40→21:11)
[2016-11-04] MEDS ORDERED: HYDROCHLOROTHIAZIDE 25 MG TAB PO SCH (09:00)
[2016-11-04] MEDS ORDERED: ATORVASTATIN 40 MG TAB PO SCH (09:00)
[2016-11-04] MEDS ORDERED: FLAXSEED PO SCH (09:00)
[2016-11-04] MEDS ORDERED: CINNAMON PO SCH (09:00)
[2016-11-04] MEDS: OXYCODONE HCL IR 5 MG TAB (IMMEDIATE RELEASE) PO PRN ×3 (09:48→19:18)
[2016-11-04 11:55] VITALS: BP 134/75; PULSE 83; TEMP 37; O2SAT 95
[2016-11-04 15:37] VITALS: BP 132/76; PULSE 81; TEMP 37; O2SAT 94
--- NOTE | 2016-11-04 15:45 | Progress Note ---
Internal Med Progress Note Date of Service: Nov 04, 2016. Provider Documentation: SUBJECTIVE: Patient is doing well. Has some pain at surgical site. No chest pain, SOB, fever, chills, cough, nausea vomiting Tolerating PO well Had a BM today OBJECTIVE: Vital Signs-as noted below Exam: General-AAOX3, no distress Neck-Supple, No JVD Lungs-AEBE, no wheezing, rales Heart-S1, S2 normal, no murmurs Extremities-s/p left knee arthroplasty Lab data as noted below. ASSESSMENT & PLAN: S/P LEFT TKA POD # [address] Castillo -Pain control and activity per ortho -Monitor daily H/H for sign of acute blood loss anemia- stable -PT/ OT DM TYPE 2 Blood sugar in range of 150-200s Recent A1c 6.9 on 08/18/16 -On metformin 1000 mg BID at home- restarted it today as creatinine normal -Refusing insulin; reports prior reaction of flushing HYPERTENSION BP is stable -Hold HCTZ for now to avoid dehydration; receiving IVF's -Continue losartan and metoprolol succinate CAD S/P CABG Stable, no chest pain -Continue beta marcelino, statin, ARB -Aspirin resumed by ortho GERD -Continue PPI GERMAN Not on CPAP at home; states uses Zzoma vest to prevent him from lying supine -Declines to use ZZoma vest or CPAP in the hospital DVT PROPHYLAXIS -Per ortho Vital Signs: Date Time Temp Pulse Resp B/P Pulse Ox O2 Delivery O2 Flow Rate FiO2 11/04/16 15:37 37.0 81 16 132/76 94 Room Air 11/04/16 11:55 37.0 83 16 134/75 95 Room Air 11/04/16 08:00 Room Air 11/04/16 07:19 36.8 73 16 136/80 94 Room Air 11/04/16 04:03 37.0 73 18 124/75 95 Room Air 11/04/16 00:14 36.7 76 18 145/81 95 11/03/16 20:56 36.9 72 16 139/75 95 Room Air 11/03/16 16:15 Nasal Cannula 3.0 Lab Results: Results Past 24 Hours Test 11/03/16 19:21 11/03/16 20:00 11/03/16 20:54 11/04/16 05:40 Range/Units Bedside Glucose 244 203 70-99 mg/dl Sodium Level 138 139 136-145 mmol/L Potassium Level 3.7 4.1 3.5-5.1 mmol/L Chloride Level 101 102 98-107 mmol/L Carbon Dioxide Level 30 31 21-32 mmol/L Anion Gap 7.0 6.0 3-11 mmol/L Blood Urea Nitrogen 16 16 7-18 mg/dl Creatinine 1.20 0.99 0.60-1.40 mg/dl Est Creatinine Clear Calc Drug Dose 72.1 87.4 ml/min Estimated GFR () 71.1 89.7 Estimated GFR (Non- 61.3 77.4 BUN/Creatinine Ratio 13.7 16.3 10-20 Random Glucose 209 163 70-99 mg/dl Calcium Level 8.0 7.9 8.5-10.1 mg/dl White Blood Count 7.38 4.8-10.8 K/uL Red Blood Count 4.08 4.7-6.1 M/uL Hemoglobin 11.9 14.0-18.0 g/dL Hematocrit 34.8 42-52 % Mean Corpuscular Volume 85.3 80-100 fL Mean Corpuscular Hemoglobin 29.2 25-34 pg Mean Corpuscular Hemoglobin Concent 34.2 32-36 g/dl RDW Standard Deviation 40.2 36.4-46.3 fL RDW Coefficient of Variation 13.1 11.5-14.5 % Platelet Count 123 130-400 K/uL Mean Platelet Volume 8.9 7.4-10.4 fL Ionized Calcium 1.13 1.12-1.32 mmol/l Albumin 3.1 3.4-5.0 gm/dl
[2016-11-04] MEDS: ATORVASTATIN 40 MG TAB PO SCH (21:12)
[2016-11-04 23:20] VITALS: BP 150/84; PULSE 85; TEMP 37; O2SAT 95
[2016-11-05] MEDS: ACETAMINOPHEN 500 MG TAB PO SCH (05:16)
[2016-11-05 06:36] VITALS: BP 146/81; PULSE 81; TEMP 36.8; O2SAT 96
[2016-11-05 07:24] LABS: HEMATOCRIT 34.6 % (42-52); MEAN CELL VOLUME 85.9 fL (80-100); MEAN CORPUSCULAR HEMOGLOBIN 29.8 pg (25-34); MEAN CORPUSCULAR HGB CONC 34.7 g/dl (32-36); MEAN PLATELET VOLUME 8.9 fL (7.4-10.4); PLATELET COUNT 138 K/uL (130-400); RED BLOOD COUNT 4.03 M/uL (4.7-6.1); WHITE BLOOD COUNT 8.77 K/uL (4.8-10.8)
[2016-11-05] MEDS: DOCUSATE SODIUM 100 MG CAP PO SCH (07:29)
[2016-11-05] MEDS: ASPIRIN 81 MG ECTAB PO SCH (07:30)
[2016-11-05] MEDS: METOPROLOL SUCC 50MG EXT REL TAB PO SCH (07:30)
[2016-11-05] MEDS: METFORMIN HCL 500 MG TAB PO SCH (07:30)
[2016-11-05] MEDS: CeleBREX 200 MG CAP PO SCH (07:31)
[2016-11-05] MEDS: PANTOprazole SOD 40 MG TAB PO SCH (07:31)
[2016-11-05] MEDS: VITAMIN B COMPLEX TAB PO SCH (07:31)
[2016-11-05] MEDS: LOSARTAN POTASSIUM 50 MG TAB PO SCH (07:32)
[2016-11-05] MEDS: MULTIVITAMIN TAB PO SCH (07:32)
--- NOTE | 2016-11-05 07:34 | Orthopedic Progress Note ---
Orthopedic Progress Note Date of Service Nov 05, 2016. Subjective Post OP Day: 2 Reports: feeling well, pain controlled w PO medications, Denies: SOB, calf pain , chest pain, complaints, light headedness, nausea / vomiting Objective calves soft nontender, N/V intact, capillary refill less than 2 sec., dressing C /D/I, A&O x3, toes mobile Silverlon in tact. Date Time Temp Pulse Resp B/P Pulse Ox O2 Delivery O2 Flow Rate FiO2 11/05/16 06:36 36.8 81 18 146/81 96 Room Air 11/05/16 00:35 Room Air 11/04/16 23:20 37.0 85 18 150/84 95 Room Air 11/04/16 16:00 Room Air 11/04/16 15:37 37.0 81 16 132/76 94 Room Air 11/04/16 11:55 37.0 83 16 134/75 95 Room Air 11/04/16 08:00 Room Air Laboratory Results 24 Hours: Test 11/05/16 07:06 Hematocrit 34.6 % Hemoglobin 12.0 g/dL Assessment & Plan Assessment: POD #2, Left TKA Plan: PT/ OT DVT proph- ASA D/C planning- Home w OPPT today Appreciate medicine input. Inhouse Planning Pain Management: Celebrex, Oxycontin, Morphine, PO Tylenol, Oxy IR DVT Prophylaxis: TEDs, SCDs, ASA Discharge Planning Discharge Planning: home with oppt Pain Management: Celebrex, Oxycontin, PO Tylenol, Oxy IR DVT Prophylaxis: TEDs, ASA Therapy: Physical Therapy, Occupational Therapy
[2016-11-05] MEDS: OXYCODONE HCL 10 MG TABCR (OXYCONTIN) PO SCH (07:39)
[2016-11-05] MEDS: OXYCODONE HCL IR 5 MG TAB (IMMEDIATE RELEASE) PO PRN ×2 (07:39→10:50)
[2016-11-05] MEDS ORDERED: ONDA8TAB6 PO (07:40)
[2016-11-05] MEDS ORDERED: CLB200 PO (07:40)
[2016-11-05] MEDS ORDERED: ACET-1138 PO (07:40)
[2016-11-05] MEDS ORDERED: OXYSR10 PO (07:40)
[2016-11-05] MEDS ORDERED: ASPEC81 PO (07:40)
[2016-11-05] MEDS ORDERED: RXC5 PO (07:40)
--- NOTE | 2016-11-05 07:41 | Discharge Instructions ---
Discharge Instructions Date of Service Nov 05, 2016. Admission Reason for Admission: Left Knee Degenerative Joint Disease Discharge Discharge Diagnosis / Problem: Left TKA Discharge Goals Goal(s): Improve function Activity Recommendations Activity Limitations: as noted below . Instructions / Follow-Up Instructions / Follow-Up ACTIVITY RECOMMENDATIONS: SELF CARE INSTRUCTIONS AFTER TOTAL KNEE REPLACEMENT A. You may need to continue a physical therapy program after discharge from the hospital. There are several options available to you. Your doctor will assist you in selecting the best one for you. 1. An out-patient facility 2 to 3 times a week for therapy or home therapy. 2. Continue working on all exercises taught to you in the hospital. Your goals should be to increase bending of your knee to 90 degrees and beyond and to fully straighten your knee. B. You may progress at your own pace from walking with a walker or crutches to a cane; then to no assistive devices. C. Make walking a part of your daily routine. Be up as much as comfortable with rest periods throughout the day. Rest with leg elevation is very important. Use the ice wrap frequently for the first 3-4 weeks. D. There are no restrictions on activities. You may ride in a car, shop, participate in drum sprayer and all social activities. E. Wear the long elastic stockings (SIXTO hose) 20 hours a day for 2 weeks after surgery. They can be removed several times a day for laundering and for a bath. F. You may shower, no tub baths until cleared by your doctor. SPECIAL CARE INSTRUCTIONS: VERY IMPORTANT TO READ AND REVIEW A. There are a few signs you need to watch for after you are home. Call [facility] if you notice any of the followin. Increased severe knee pain. Some pain is expected especially when you exercise. 2. Increased swelling in your leg or knee; pain or swelling of the calf muscle in either lower leg. 3. Any fluid drainage from the incision. 4. Shortness of breath or chest pain. B. Please call [facility] at if you have any concerns or questions about your operation or recovery. The doctor or his nurse will return your call promptly. C. You must take antibiotics before dental work, bladder, bowel or other surgery. Your doctor will provide you with a permanent care to carry describing this precaution. IMPORTANT: * REMEMBER TO TAKE ASPIRIN, 81 MG, TWICE DAILY FOR 4 WEEKS UNLESS OTHERWISE DIRECTED. THIS IS YOUR BLOOD THINNER. * HIGH RISK PATIENTS MAY BE PRESCRIBED A STRONGER BLOOD THINNER. THIS WILL BE PROVIDED AT DISCHARGE. * CALL IF INCREASED PAIN, REDNESS, DRAINAGE OR FEVER GREATER THAT 101. * WEAR SIXTO HOSE 20 HOURS PER DAY FOR 2 WEEKS. * YOU MAY HAVE A LARGE BAND-AID LIKE DRESSING (SILVERON). THIS WILL REMAIN ON YOUR INCISION FOR 7 DAYS, THEN CAN BE REMOVED. IF INCISION IS LEAKING THROUGH DRESSING, CALL THE OFFICE . FOLLOW UP VISIT: If appointment is not already scheduled: Please call [facility] to make a follow-up appointment for 2 weeks after your surgery at . Current Hospital Diet Patient's current hospital diet: Diabetes Type 2 Diet Discharge Diet Recommended Diet: Diabetes Type 2 Diet Procedures Procedures Performed: Left Total Knee Arthroplasty Pending Studies Studies pending at discharge: no Medical Emergencies . Who to Call and When: Medical Emergencies: If at any time you feel your situation is an emergency, please call [phone] immediately. . Non-Emergent Contact Non-Emergency issues call your: Primary Care Provider . "Provider Documentation" section prepared by Chandler Sykes. . VTE Core Measure Inpt VTE Proph given/why not?: Other Anticoagulation (asa), Kwan Rocha, SCD's [place] Drug Monitoring Program Search Results: patient reviewed within database, no issues identified
[2016-11-05 07:59] LABS: BUN/CREATININE RATIO 17.6 (10-20); CALCIUM 8.8 mg/dl (8.5-10.1); CREATININE 0.99 mg/dl (0.60-1.40)
[2016-11-05 09:24] VITALS: BP 146/81; PULSE 81; TEMP 36.8; O2SAT 96
--- NOTE | 2016-11-20 20:51 | DISCHARGE SUMMARY ---
HISTORY OF PRESENT ILLNESS: This is a 71-year-old male patient of Dr. Castillo'shalonda complaining of chronic left knee pain, longstanding, now progressively getting worse. The patient has failed conservative treatment and wished to proceed with a left total knee arthroplasty. PAST MEDICAL HISTORY: Hypertension, hypercholesterolemia, coronary artery disease status post triple bypass surgery, sleep apnea, diabetes mellitus, osteoarthritis, sciatica, and acid reflux. POSTOPERATIVE COURSE: The patient underwent a left total knee arthroplasty on 11/03/2016. He was followed closely with medical consultation, pain control, physical therapy and DVT prophylaxis in the form of aspirin. The patient did well postoperatively and was discharged on postoperative day #2. PHYSICAL EXAMINATION: EXTREMITIES: Left knee Silverlon dressing was clean, dry and intact. There was no redness or drainage. He had no calf tenderness. Negative Homans sign. NEUROLOGIC: Neurologically and neurovascularly he is intact in his left lower extremity. DIAGNOSES: Status post left total knee arthroplasty with a history of hypertension, hypercholesterolemia, coronary artery disease, sleep apnea, diabetes mellitus, osteoarthritis, sciatica and acid reflux. PLAN: The patient was discharged home with outpatient physical therapy. He will continue aspirin for DVT prophylaxis. He will continue his preadmission medications and pain control. He will follow up as scheduled in the office.
== END 2016-11-05 11:30 | disposition home or self-care (01) | DRG 470 ==
LOC: ENRESERVTM → ENRESERVDT → C.ACU 05:21 → C.MSW 07:15
PROVIDERS: ADMIT Orthopaedic Surgery Sports Medicine; ATTEND Orthopaedic Surgery Sports Medicine
PROC: 0SRD0J9 Replacement of Left Knee Joint with Synthetic Substitute, Cemented, Open Approach (ICD-10-PCS; principal; 2016-11-03 07:30)
DX: M17.12 Unilateral primary osteoarthritis, left knee (principal); M21.162 Varus deformity, not elsewhere classified, left knee; M24.562 Contracture, left knee; E11.65 Type 2 diabetes mellitus with hyperglycemia; E11.42 Type 2 diabetes mellitus with diabetic polyneuropathy; I10 Essential (primary) hypertension; E78.00 Pure hypercholesterolemia, unspecified; I25.10 Atherosclerotic heart disease of native coronary artery without angina pectoris; G47.30 Sleep apnea, unspecified; K21.9 Gastro-esophageal reflux disease without esophagitis; M54.30 Sciatica, unspecified side; E66.9 Obesity, unspecified; Z68.31 Body mass index [BMI] 31.0-31.9, adult; Z95.1 Presence of aortocoronary bypass graft; Z79.82 Long term (current) use of aspirin; Z79.84 Long term (current) use of oral hypoglycemic drugs; Z79.899 Other long term (current) drug therapy